=== PATIENT | female | born 1970 | race Caucasian/White ===

== ENCOUNTER 2016-09-12 13:42 | Emergency (ER) | payer OTHER ==
[~2016-09-12] VITALS: Ht 162.6 cm; Wt 96.0 kg
[~2016-09-12 13:42] MED LIST: ROBA750T3 PO; TRAM50 PO; Z.0.NO CURRENT MEDS
[2016-09-12 13:49] VITALS: BP 112/80; PULSE 76; RESP 18; TEMP 98.3; O2SAT 97
[2016-09-12] MEDS ORDERED: NAPR500T PO (14:11)
--- NOTE | 2016-09-12 14:12 | PD ---
HPI Chief Complaint: Eye Problems/Injury Time Seen by Provider: 14:11 Travel History International Travel<30 days: No Contact w/Intl Traveler<30days: No Traveled to known affect area: No History of Present Illness HPI 46-year-old female presents to the emergency department for evaluation of left eye injury. Patient states that she was walking around the corner at work about an hour ago when a coworker accidentally hold her in the left eye. States that she has swelling and pain over her left eye and headache. Denies loss of consciousness. Denies any vision loss, blurred vision, eye redness, drainage, photophobia, nausea, vomiting. Denies , last menstrual period 2 weeks ago. No other complaints. PFSH Past Medical History Medical History: Denies Significant Hx Diminished Hearing: No Tetanus Vaccination: Unknown Influenza Vaccination: No ?: Not LMP: 1 WEEK AGO Past Surgical History Surgical History: No Previous Surgery Social History Alcohol Use: No Tobacco Use: No Substance Use: No Allergies-Medications (Allergen,Severity, Reaction): Coded Allergies: No Known Allergies (Verified , 09/12/16) Reported Meds & Prescriptions Reported Meds & Active Scripts Active Naproxen 500 Mg Tab 500 Mg PO BID 5 Days Review of Systems Except as stated in HPI: all other systems reviewed are Neg Physical Exam Narrative GENERAL: Well-nourished and well-developed pleasant patient in no acute distress who is nontoxic appearing. SKIN: Warm and dry. HEAD: Normocephalic and atraumatic. No tenderness of facial bones. EYES: Ecchymosis and swelling of left eyelid and periorbital region. There is a 0.5 cm superficial linear abrasion above the left eye. No injection, drainage , or hyphema noted. PERRLA. EOMI. Fluorescein stain reveals no uptake. No ulcerations, abrasions, or foreign bodies noted the cornea is clear. Visual acuity is equal bilaterally. ENT: No nasal drainage noted. Oropharynx is clear. NECK: Supple and the trachea is midline. CARDIOVASCULAR: Regular rate and rhythm. RESPIRATORY: Breath sounds are equal bilaterally with no accessory muscle use, wheezing, rhonchi, or crackles. NEUROLOGICAL: Awake, alert, and oriented. Normal speech and gait. Cranial nerves are grossly intact. Data Data Last Documented VS Vital Signs Date Time Temp Pulse Resp B/P Pulse Ox O2 Delivery O2 Flow Rate FiO2 09/12/16 13:49 98.3 76 18 112/80 97 Orders Acetaminophen (Tylenol) (09/12/16 14:15) MDM Medical Decision Making Medical Screen Exam Complete: Yes Emergency Medical Condition: Yes Differential Diagnosis Periorbital contusion versus abrasion versus corneal abrasion Narrative Course 46-year-old female presents to the emergency department for evaluation of left eye injury. Patient is afebrile, vital signs are stable. Physical examination reveals a periorbital contusion. Fluorescein stain is negative. Visual acuity is equal bilaterally. Patient is advised to apply ice and take NSAIDs. She is stable for discharge. Diagnosis Primary Impression: Periorbital contusion of left eye Qualified Code: S05.12XA - Periorbital contusion of left eye, initial encounter Referrals: Primary Care Physician Patient Instructions: Facial Contusion (ED), General Instructions Additional Instructions: Apply ice for 20 minutes on, 20 minutes off. Take medication as prescribed with food and a full glass of water. Follow-up with your Primary Care Physician as needed. Return to the ED for any acute worsening of symptoms. Med/Other Pt SpecificInfo: Prescription(s) given Scripts Naproxen 500 Mg [id number] Mg PO BID 5 Days Ref 0 Prov:Jp Green MD 09/12/16 Disposition: 01 DISCHARGE HOME Condition: Stable Natalia Hendricks Sep 12, 2016 14:12
[2016-09-12] MEDS ORDERED: ACETAMINOPHEN 500 MG CPLT PO ONE (14:15)
== END 2016-09-12 14:46 | disposition home or self-care (01) ==
LOC: PHEFT 13:42
DX: S00.12XA Contusion of left eyelid and periocular area, initial encounter (principal); S00.212A Abrasion of left eyelid and periocular area, initial encounter; W22.8XXA Striking against or struck by other objects, initial encounter; Y93.9 Activity, unspecified; Y92.9 Unspecified place or not applicable; Y99.0 Civilian activity done for income or pay
CPT/HCPCS: 99283